=== PATIENT | female | born 1985 | race American Indian/Alaskan Native ===

== ENCOUNTER 2017-03-10 04:04 | Emergency (ER) | payer SELFPAY ==
[2017-03-10 04:14] VITALS: BP 127/89
--- NOTE | 2017-03-10 06:50 | Emergency Department Report ---
ED ENT HPI - General Chief complaint: Dental/Oral Stated complaint: L SIDE FACIAL/L EAR PAIN Time Seen by Provider: 03/10/17 06:25 Source: patient Mode of arrival: Ambulatory Limitations: No Limitations - History of Present Illness Initial comments: Patient comes into the ER today with complaints of left-sided dental pain that started yesterday. Patient denies any new injury. Patient states that she has had a bad tooth for some time but he has not bothered her until yesterday. Patient does state that she just recently got dental insurance and saw a dentist on the fifth of this month. States that he is wanting to pull 2 of her teeth and do some other dental work that she is waiting on insurance for approval. Patient states the pain is worse with eating, cold drinks, cold air. She has been taking [id number] Tylenol without any relief. MD complaint: tooth pain -: days(s) (1) - Related Data Previous Rx's Medication Instructions Recorded Last Taken Type Cephalexin [Keflex] 500 mg PO Q6H #12 capsule 10/22/13 Unknown Rx Sulfamethoxazole/Trimethoprim 1 each PO BID #6 tablet 10/22/13 Unknown Rx [Bactrim Ds] Hyoscyamine Subl [Levsin Sl] 0.125 mg SL Q4HR PRN #10 tablet 03/10/14 Unknown Rx Ondansetron [Zofran Odt] 4 mg PO Q4H #10 tab.rapdis 03/10/14 Unknown Rx Acetaminophen/Codeine [Tylenol #3] 1 tab PO Q6H PRN #20 tab 02/08/16 Unknown Rx Ibuprofen [Motrin] 600 mg PO Q8H PRN #50 tablet 02/08/16 Unknown Rx Penicillin Vk [Veetids TAB] 500 mg PO QID #40 tablet 02/08/16 Unknown Rx Acetaminophen/Codeine [Tylenol 1 tab PO Q6H PRN #20 tab 03/10/17 Unknown Rx /Codeine # 3 tab] Amoxicillin 1,000 mg PO BID #40 capsule 03/10/17 Unknown Rx Allergies Allergy/AdvReac Type Severity Reaction Status Date / Time No Known Allergies Allergy Unverified 10/22/13 12:54 ED Dental HPI - General Chief complaint: Dental/Oral Stated complaint: L SIDE FACIAL/L EAR PAIN Time Seen by Provider: 03/10/17 06:25 Source: patient Mode of arrival: Ambulatory Limitations: No Limitations - Related Data Previous Rx's Medication Instructions Recorded Last Taken Type Cephalexin [Keflex] 500 mg PO Q6H #12 capsule 10/22/13 Unknown Rx Sulfamethoxazole/Trimethoprim 1 each PO BID #6 tablet 10/22/13 Unknown Rx [Bactrim Ds] Hyoscyamine Subl [Levsin Sl] 0.125 mg SL Q4HR PRN #10 tablet 03/10/14 Unknown Rx Ondansetron [Zofran Odt] 4 mg PO Q4H #10 tab.rapdis 03/10/14 Unknown Rx Acetaminophen/Codeine [Tylenol #3] 1 tab PO Q6H PRN #20 tab 02/08/16 Unknown Rx Ibuprofen [Motrin] 600 mg PO Q8H PRN #50 tablet 02/08/16 Unknown Rx Penicillin Vk [Veetids TAB] 500 mg PO QID #40 tablet 02/08/16 Unknown Rx Acetaminophen/Codeine [Tylenol 1 tab PO Q6H PRN #20 tab 03/10/17 Unknown Rx /Codeine # 3 tab] Amoxicillin 1,000 mg PO BID #40 capsule 03/10/17 Unknown Rx Allergies Allergy/AdvReac Type Severity Reaction Status Date / Time No Known Allergies Allergy Unverified 10/22/13 12:54 ED Review of Systems ROS: Stated complaint: L SIDE FACIAL/L EAR PAIN Other details as noted in HPI Constitutional: denies: chills, fever Eyes: denies: eye pain, eye discharge, vision change ENT: ear pain, dental pain. denies: throat pain, hearing loss, epistaxis, congestion Respiratory: denies: cough, shortness of breath, wheezing Cardiovascular: denies: chest pain, palpitations Endocrine: no symptoms reported Gastrointestinal: denies: abdominal pain, nausea, diarrhea Genitourinary: denies: urgency, dysuria, discharge Musculoskeletal: denies: back pain, joint swelling, arthralgia Skin: denies: rash, lesions Neurological: denies: headache, weakness, paresthesias Psychiatric: denies: anxiety, depression Hematological/Lymphatic: denies: easy bleeding, easy bruising ED Past Medical Hx - Past Medical History Previous Medical History?: Yes Additional medical history: anemia - Surgical History Past Surgical History?: Yes Additional Surgical History: Tubal Ligation - Social History Smoking Status: Current Every Day Smoker Substance Use Type: None - Medications Home Medications: Home Medications Medication Instructions Recorded Confirmed Last Taken Type Cephalexin [Keflex] 500 mg PO Q6H #12 capsule 10/22/13 Unknown Rx Sulfamethoxazole/Trimethoprim 1 each PO BID #6 tablet 10/22/13 Unknown Rx [Bactrim Ds] Hyoscyamine Subl [Levsin Sl] 0.125 mg SL Q4HR PRN #10 tablet 03/10/14 Unknown Rx Ondansetron [Zofran Odt] 4 mg PO Q4H #10 tab.rapdis 03/10/14 Unknown Rx Acetaminophen/Codeine [Tylenol #3] 1 tab PO Q6H PRN #20 tab 02/08/16 Unknown Rx Ibuprofen [Motrin] 600 mg PO Q8H PRN #50 tablet 02/08/16 Unknown Rx Penicillin Vk [Veetids TAB] 500 mg PO QID #40 tablet 02/08/16 Unknown Rx Acetaminophen/Codeine [Tylenol 1 tab PO Q6H PRN #20 tab 03/10/17 Unknown Rx /Codeine # 3 tab] Amoxicillin 1,000 mg PO BID #40 capsule 03/10/17 Unknown Rx ED Physical Exam - General Limitations: No Limitations General appearance: alert, in no apparent distress - Head Head exam: Present: atraumatic, normocephalic, other (left mandibular and left maxillary tenderness to palpation) - Eye Eye exam: Present: normal appearance, PERRL, EOMI. Absent: conjunctival injection, periorbital swelling, periorbital tenderness Pupils: Present: normal accommodation - ENT ENT exam: Present: mucous membranes moist, TM's normal bilaterally, normal external ear exam, other (left upper molar and left lower lateral incisor dental decay noted no obvious dental abscess noted internally.) - Neck Neck exam: Present: normal inspection, full ROM. Absent: tenderness, lymphadenopathy - Respiratory Respiratory exam: Present: normal lung sounds bilaterally. Absent: respiratory distress, decreased breath sounds - Cardiovascular Cardiovascular Exam: Present: regular rate, normal rhythm, normal heart sounds. Absent: systolic murmur, diastolic murmur, rubs, gallop - GI/Abdominal GI/Abdominal exam: Present: soft, normal bowel sounds - Extremities Exam Extremities exam: Present: normal inspection - Back Exam Back exam: Present: normal inspection - Neurological Exam Neurological exam: Present: alert, oriented X3, CN II-XII intact, normal gait, reflexes normal. Absent: motor sensory deficit - Psychiatric Psychiatric exam: Present: normal affect, normal mood - Skin Skin exam: Present: warm, dry, intact, normal color. Absent: rash ED Course Vital Signs 03/10/17 04:09 Temperature 99.3 F Pulse Rate 68 Respiratory 20 Rate Blood Pressure 127/89 O2 Sat by Pulse 100 Oximetry ED Medical Decision Making - Medical Decision Making Patient is nontoxic and hemodynamically stable. I informed patient that she needs to follow back up with her dentist and we will start her on some antibiotics appropriately as well as prescribe her some stronger pain medicine than [id number] Tylenol. Patient is to continue avoiding chewing on left side of her mouth. Patient is in agreement with treatment plan patient stable for discharge. Critical care attestation.: If time is entered above; I have spent that time in minutes in the direct care of this critically ill patient, excluding procedure time. ED Disposition Clinical Impression: Pain, dental, Dental infection, Infected dental carries Disposition: TO HOME OR SELFCARE Is pt being admited?: No Does the pt Need Aspirin: No Condition: Good Instructions: Dental Caries (ED), Toothache (ED), Dental Abscess (ED) Prescriptions: Acetaminophen/Codeine [Tylenol /Codeine # 3 tab] 1 tab PO Q6H PRN #20 tab PRN Reason: Pain Amoxicillin 1,000 mg PO BID #40 capsule Referrals: PRIMARY CARE, [Primary Care Provider] - 3-5 Days [facility] [Outside] - 3-5 Days Time of Disposition: 06:54
[2017-03-10] MEDS ORDERED: ULTRAM ONE (07:02)
[2017-03-10] MEDS ORDERED: ULTRAM PO ONE (07:05)
== END 2017-03-10 07:06 | disposition home or self-care (01) ==
LOC: ED 04:04
DX: K02.9 Dental caries, unspecified (principal); K04.7 Periapical abscess without sinus; F17.200 Nicotine dependence, unspecified, uncomplicated
CPT/HCPCS: 99282

== ENCOUNTER 2021-01-30 16:16 | Emergency (ER) | payer SELFPAY | END 2021-01-30 17:46 | disposition left against medical advice (07) | LOC: ED 16:16 | DX: R07.81 Pleurodynia (principal); Z53.21 Procedure and treatment not carried out due to patient leaving prior to being seen by health care provider ==